=== PATIENT | male | born 2000 | race African-American/Black ===

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

== ENCOUNTER 2021-10-03 13:56 | Emergency (ER) | payer OTHER ==
[2021-10-03] MEDS ORDERED: LIDOCAINE 1% MPF 30 ML VIAL ONE (15:03)
[2021-10-03] MEDS ORDERED: TETANUS & DIPHTHERIA TOX,ADULT 0.5 ML VIAL ONE (15:03)
--- NOTE | 2021-10-03 17:10 | EDPHYS ---
Physician Documentation [facility] Name: Daisy Gunter Age: 20 yrs Sex: Male : 2000 Arrival Date: 10/03/2021 Time: 13:58 Bed Treatment Private MD: ED Physician Davin Motta HPI: 10/03 15:00 This 20 yrs old Black Male presents to ER via Ambulatory with complaints of Finger cp Injury - Finger lac. 15:00 The patient or guardian reports a laceration. cp 15:00 The complaints affect the right small finger. cp 15:00 Context: The problem was sustained at work, resulted from broken glass. cp 15:00 Onset: The symptoms/episode began/occurred today. Associated signs and symptoms: cp Pertinent negatives: cyanosis distally, decreased sensation distally. Historical: - Allergies: 14:12 No Known Allergies; ld1 - Home Meds: 14:12 None [Active]; ld1 - PMHx: 14:12 None; ld1 - PSHx: 14:12 None; ld1 - Immunization history:: Adult Immunizations up to date, Client reports having NOT received the Covid vaccine. - Social history:: Smoking status: Reported history of juuling and/or vaping. Patient uses alcohol, occasionally. ROS: 15:05 Constitutional: Negative for body aches, chills, fever. cp 15:05 Cardiovascular: Negative for chest pain, palpitations. cp 15:05 Respiratory: Negative for cough, shortness of breath, wheezing. 15:05 Abdomen/GI: Negative for abdominal pain, nausea, vomiting, and diarrhea. 15:05 Skin: Positive for laceration(s), of the right fifth finger. 15:05 Neuro: Negative for numbness, tingling. 15:05 All other systems are negative. Exam: 15:10 Constitutional: The patient appears in no acute distress, alert, awake, well developed, cp well nourished. 15:10 Head/Face: Normocephalic, atraumatic. cp 15:10 Cardiovascular: Rate: normal. 15:10 Respiratory: the patient does not display signs of respiratory distress, Respirations: normal. 15:10 Musculoskeletal/extremity: exam of right small finger shows no tendon injury, full ROM. 15:10 Skin: injury, laceration(s), the wound is approximately 3.5 cm(s), of the ulna side middle and proximal phalanx right small finger, that can be described as clean, no foreign body, linear, without bleeding. Vital Signs: 14:11 BP 157 / 71; Pulse 92; Resp 18; Temp 98.6(O); Pulse Ox 98% on R/A; Weight 71.67 kg; ld1 Height 6 ft. 1 in. (185.42 cm); Pain 0/10; 17:40 BP 107 / 64; Pulse 54; Resp 18; Pulse Ox 99% on R/A; ww 14:11 Body Mass Index 20.85 (71.67 kg, 185.42 cm) ld1 Laceration: 17:05 Wound Repair of 3.5cm ( 1.4in ) subcutaneous laceration to radial side right fifth cp finger. Linear shaped.. Distal neuro/vascular/tendon intact. Anesthesia: Wound infiltrated with 4 mls of 1% lidocaine. Wound prep: Moderate cleansing by me, Wound irrigation by me. Skin closed with 6 4-0 Prolene using interrupted sutures and sterile technique. Dressed with Bacitracin, 4x4's. Patient tolerated well. MDM: 14:49 Patient medically screened. cp 17:08 Data reviewed: vital signs, nurses notes. cp 17:08 Differential diagnosis: open fracture, tendon injury, simple laceration. Counseling: I cp had a detailed discussion with the patient and/or guardian regarding: the historical points, exam findings, and any diagnostic results supporting the discharge/admit diagnosis, the need for outpatient follow up, a family practitioner, to return to the emergency department if symptoms worsen or persist or if there are any questions or concerns that arise at home. Response to treatment: the patient's symptoms have markedly improved after treatment, and as a result, I will discharge patient. 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 Exp: ww 01/20/2023. Lot #: [id number]. } Route: IM; Site: left deltoid; 15:35 Drug: Lidocaine (1 %) 10 ml {Note: given via ER ; ANIVAL.} Volume: 20 ml; Route: ww Infiltration; Disposition: 17:15 Chart complete. cp Disposition Summary: 10/03/21 17:08 Discharge Ordered Location: Home cp Problem: new cp Symptoms: have improved cp Condition: Stable cp Diagnosis - Laceration without foreign body of right little finger without damage to nail, cp initial encounter Followup: cp - With: Private Physician - When: 10 - 14 days - Reason: Staple/Suture removal Discharge Instructions: - Discharge Summary Sheet cp - Laceration Care, Adult cp - Sutured Wound Care cp Forms: - Medication Reconciliation Form cp - Thank You Letter cp - Antibiotic Education cp - Prescription Opioid Use cp Addendum: 10/07/2021 07:07 Co-signature as Attending Physician, Davin Motta MD I agree with the assessment and r n plan of care. Attestation: The patient's history, exam findings, diagnostics, and a summary of any interventions or procedures was reviewed in detail with Elpidio HURLEY. Signatures: Davin Motta MD MD rn Page, Corey, PA PA cp Argelia Gurrola RN RN ld1 Bhargavi Weston RN RN ww Corrections: (The following items were deleted from the chart) 10/03 17:09 17:05 Wound Repair of 3.5cm ( 1.4in ) subcutaneous laceration to radial side right cp fourth finger. Linear shaped.. Distal neuro/vascular/tendon intact. Anesthesia: Wound infiltrated with 4 mls of 1% lidocaine. Wound prep: Moderate cleansing by me, Wound irrigation by me. Skin closed with 6 4-0 Prolene using interrupted sutures and sterile technique. Dressed with Bacitracin, 4x4's. Patient tolerated well. cp 10/04 17:26 10/03 15:10 Skin: injury, laceration(s), the wound is approximately 4 cm(s), of the cp ulna side middle and proximal phalanx right small finger, that can be described as clean, no foreign body, linear, without bleeding, cp
--- NOTE | 2021-10-03 17:10 | ER ---
Nurse's Notes [facility] Name: Daisy Gunter Age: 20 yrs Sex: Male : 2000 Arrival Date: 10/03/2021 Time: 13:58 Bed Treatment Private MD: Diagnosis: Laceration without foreign body of right little finger without damage to nail, initial encounter Presentation: 10/03 14:11 Chief complaint: Patient states: Finger laceration to right pinky - Rack of cups ld1 slipped out of hand - broken glass cut finger. Coronavirus screen: At this time, the client does not indicate any symptoms associated with coronavirus-19. Ebola Screen: No symptoms or risks identified at this time. Initial Sepsis Screen: Does the patient meet any 2 criteria? No. Patient's initial sepsis screen is negative. Does the patient have a suspected source of infection? No. Patient's initial sepsis screen is negative. Risk Assessment: Do you want to hurt yourself or someone else? Patient reports no desire to harm self or others. Onset of symptoms was October 03, 2021. 14:11 Method Of Arrival: Ambulatory ld1 14:11 Acuity: DERIAN 4 ld1 Triage Assessment: 14:12 General: Appears in no apparent distress. comfortable, Behavior is calm, cooperative, ld1 appropriate for age. Pain: Denies pain. Neuro: Level of Consciousness is awake, alert, obeys commands, Oriented to person, place, time, situation. Respiratory: Airway is patent Respiratory effort is even, unlabored. Musculoskeletal: No signs and/or symptoms reported regarding the musculoskeletal system. Injury Description: Laceration sustained to dorsal aspect of distal phalanx of right little finger, dorsal aspect of middle phalanx of right little finger and dorsal aspect of proximal phalanx of right little finger. Historical: - Allergies: 14:12 No Known Allergies; ld1 - Home Meds: 14:12 None [Active]; ld1 - PMHx: 14:12 None; ld1 - PSHx: 14:12 None; ld1 - Immunization history:: Adult Immunizations up to date, Client reports having NOT received the Covid vaccine. - Social history:: Smoking status: Reported history of juuling and/or vaping. Patient uses alcohol, occasionally. Screenin:41 Abuse screen: Denies threats or abuse. Denies injuries from another. Nutritional ww screening: No deficits noted. Tuberculosis screening: No symptoms or risk factors identified. Fall Risk None identified. Assessment: 14:30 General: Appears in no apparent distress. comfortable, Behavior is calm, cooperative. ww Pain: Complains of pain in dorsal aspect of middle phalanx of right little finger, dorsal aspect of proximal phalanx of right little finger, palmar aspect of middle phalanx of right little finger and palmar aspect of proximal phalanx of right little finger. Neuro: Level of Consciousness is awake, alert, obeys commands, Oriented to person, place, time, situation, Speech is normal. Cardiovascular: Capillary refill < 3 seconds Patient's skin is warm and dry. Respiratory: Airway is patent Respiratory effort is even, unlabored, Respiratory pattern is regular, symmetrical. GI: No deficits noted. : No deficits noted. Derm: Skin is healthy with good turgor. Injury Description: Laceration sustained to dorsal aspect of middle phalanx of right little finger, dorsal aspect of proximal phalanx of right little finger, palmar aspect of middle phalanx of right little finger and palmar aspect of proximal phalanx of right little finger. 15:15 Reassessment: Patient appears in no apparent distress at this time. No changes from ww previously documented assessment. Patient and/or family updated on plan of care and expected duration. Pain level reassessed. Patient is alert, oriented x 3, equal unlabored respirations, skin warm/dry/pink. 16:26 Reassessment: Patient appears in no apparent distress at this time. No changes from ww previously documented assessment. Patient and/or family updated on plan of care and expected duration. Pain level reassessed. Patient is alert, oriented x 3, equal unlabored respirations, skin warm/dry/pink. Vital Signs: 14:11 BP 157 / 71; Pulse 92; Resp 18; Temp 98.6(O); Pulse Ox 98% on R/A; Weight 71.67 kg; ld1 Height 6 ft. 1 in. (185.42 cm); Pain 0/10; 17:40 BP 107 / 64; Pulse 54; Resp 18; Pulse Ox 99% on R/A; ww 14:11 Body Mass Index 20.85 (71.67 kg, 185.42 cm) ld1 ED Course: 13:58 Patient arrived in ED. ds1 14:11 Arm band placed on right wrist. ld1 14:12 Triage completed. ld1 14:45 [facility] Starkey [facility]. cp 14:46 Davin Motta MD is Attending Physician. cp 14:51 Bhargavi Weston, RN is Primary Nurse. ww 17:41 Patient has correct armband on for positive identification. Bed in low position. Call ww light in reach. Side rails up X 1. 17:41 No provider procedures requiring assistance completed. Patient did not have IV access ww during this emergency room visit. 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 Exp: ww 01/20/2023. Lot #: [id number]. } Route: IM; Site: left deltoid; 15:35 Drug: Lidocaine (1 %) 10 ml {Note: given via ER ; ANIVAL.} Volume: 20 ml; Route: ww Infiltration; Outcome: 17:08 Discharge ordered by MD. cp 17:40 Discharged to home ambulatory. ww 17:40 Condition: stable 17:40 Discharge instructions given to patient, Instructed on discharge instructions, follow up and referral plans. medication usage, safety practices, wound care, Demonstrated understanding of instructions, follow-up care, medications. 17:41 Patient left the ED. ww Signatures: Katharine Leos ds1 Elpidio Starkey PA PA cp Argelia Gurrola, RN RN ld1 Bhargavi Weston, RN RN ww Corrections: (The following items were deleted from the chart) 14:13 14:11 Pulse 92bpm; Resp 18bpm; Pulse Ox 98% RA; Temp 98.6F Oral; 71.67 kg; Height 6 ft. ld1 1 in.; BMI: 20.8; Pain 0/10; ld1
[2021-10-03 18:25] VITALS: TEMP 98.6
[2021-10-03 18:28] VITALS: BP 107/64; O2SAT 99
== END 2021-10-03 17:41 | disposition home or self-care (01) ==
LOC: ER 13:56
PROC: 0JQJ0ZZ Repair Right Hand Subcutaneous Tissue and Fascia, Open Approach (ICD-10-PCS; principal; 2021-10-03)
DX: S61.216A Laceration without foreign body of right little finger without damage to nail, initial encounter (principal); W25.XXXA Contact with sharp glass, initial encounter; Y92.89 Other specified places as the place of occurrence of the external cause; Y99.8 Other external cause status; Z23 Encounter for immunization
CPT/HCPCS: 90471; 90714; 99283

== ENCOUNTER 2021-10-20 17:26 | Emergency (ER) | payer OTHER ==
--- NOTE | 2021-10-20 17:54 | EDPHYS ---
Physician Documentation [facility] Name: Daisy Gunter Age: 20 yrs Sex: Male : 2000 Arrival Date: 10/20/2021 Time: 17:28 Bed 12 Private MD: ED Physician Davin Motta HPI: 10/20 17:51 This 20 yrs old Black Male presents to ER via Ambulatory with complaints of Suture kb Removal. 17:51 The patient has sutures on the dorsal aspect of proximal phalanx of right little kb finger. Previous treatment: The patient was initially treated on October 03, 2021. Sutures/myles progress: The patient has no c/o's. The wound is well-healing with no redness, swelling, discharge, or dehiscence reported. The patient has not experienced similar symptoms in the past. The patient has been recently seen by a physician:. Historical: - Allergies: 17:34 No Known Allergies; ld1 - Home Meds: 17:34 None [Active]; ld1 - PMHx: 17:34 None; ld1 - PSHx: 17:34 None; ld1 - Immunization history:: Adult Immunizations up to date, Client reports having NOT received the Covid vaccine. - Social history:: Smoking status: Reported history of juuling and/or vaping. Patient/guardian denies using alcohol. ROS: 17:52 Constitutional: Negative for fever, chills, and weight loss. kb 17:52 Skin: Positive for sutures in place. 17:52 All other systems are negative. Exam: 17:52 Constitutional: This is a well developed, well nourished patient who is awake, alert, kb and in no acute distress. Head/Face: Normocephalic, atraumatic. ENT: Moist Mucous membranes Respiratory: Respirations even and unlabored. No increased work of breathing. Talking in full sentences MS/ Extremity: Pulses equal, no cyanosis. Neurovascular intact. Full, normal range of motion. Neuro: Awake and alert, GCS 15, oriented to person, place, time, and situation. Moves all extremities. Normal gait. Psych: Awake, alert, with orientation to person, place and time. Behavior, mood, and affect are within normal limits. 17:52 Skin: Wound recheck: Suture laceration closure: the wound is healing well, the edges are well approximated, no evidence of dehiscence, no drainage, no erythema, no swelling. Vital Signs: 17:33 BP 131 / 78; Pulse 55; Resp 18; Temp 98.7(TE); Pulse Ox 97% on R/A; Weight 71.67 kg; ld1 Height 6 ft. 2 in. (187.96 cm); Pain 0/10; 17:33 Body Mass Index 20.29 (71.67 kg, 187.96 cm) ld1 Procedures: 17:52 Suture/Staple removal: Removed 6 sutures, from dorsal aspect of proximal phalanx of kb right little finger, site appears well healed, Patient tolerated well. MDM: 17:45 Patient medically screened. kb 17:52 Data reviewed: vital signs, nurses notes. Data interpreted: Pulse oximetry: on room air kb is 97 %. Interpretation: normal. Counseling: I had a detailed discussion with the patient and/or guardian regarding: the historical points, exam findings, and any diagnostic results supporting the discharge/admit diagnosis, the need for outpatient follow up, a family practitioner, to return to the emergency department if symptoms worsen or persist or if there are any questions or concerns that arise at home. Administered Medications: No medications were administered Disposition: 18:47 Co-signature as Attending Physician, Davin Motta MD I agree with the assessment and rn plan of care. Attestation: The patient's history, exam findings, diagnostics, and a summary of any interventions or procedures was reviewed in detail with Diana SAMUELS. Disposition Summary: 10/20/21 17:53 Discharge Ordered Location: Home Condition: Stable kb Diagnosis - Encounter for removal of sutures kb Followup: kb - With: Emergency Department - When: As needed - Reason: Worsening of condition Followup: kb - With: Private Physician - When: 2 - 3 days - Reason: Recheck today's complaints, Continuance of care, Re-evaluation by your physician Discharge Instructions: - Discharge Summary Sheet kb - Suture Removal, Care After kb Forms: - Medication Reconciliation Form kb - Thank You Letter kb - Antibiotic Education kb - Work release form kb - Prescription Opioid Use kb Signatures: Diana Small FNP-C FNP-Davin Cohen MD MD rn Dibbern, Lauren, RN RN ld1
--- NOTE | 2021-10-20 17:54 | ER ---
Nurse's Notes [facility] Name: Daisy Gunter Age: 20 yrs Sex: Male : 2000 Arrival Date: 10/20/2021 Time: 17:28 Bed 12 Private MD: Diagnosis: Encounter for removal of sutures Presentation: 10/20 17:33 Chief complaint: Patient states: Suture removal in right pinky finger. Coronavirus ld1 screen: At this time, the client does not indicate any symptoms associated with coronavirus-19. Ebola Screen: No symptoms or risks identified at this time. Initial Sepsis Screen: Does the patient meet any 2 criteria? No. Patient's initial sepsis screen is negative. Does the patient have a suspected source of infection? No. Patient's initial sepsis screen is negative. Risk Assessment: Do you want to hurt yourself or someone else? Patient reports no desire to harm self or others. Onset of symptoms was October 20, 2021. 17:33 Method Of Arrival: Ambulatory ld1 17:33 Acuity: DERIAN 4 ld1 Triage Assessment: 17:34 General: Appears in no apparent distress. comfortable, Behavior is calm, cooperative, ld1 appropriate for age. Pain: Denies pain. Neuro: Level of Consciousness is awake, alert, obeys commands, Oriented to person, place, time, situation. Respiratory: Airway is patent Respiratory effort is even, unlabored. Derm:. 17:36 General: Appears in no apparent distress. comfortable, Behavior is calm, cooperative. lr4 Pain: Denies pain. Neuro: No deficits noted. Cardiovascular: No deficits noted. Respiratory: No deficits noted. Injury Description: Sutures noted to R hand posterior 5th digit. healing well. Historical: - Allergies: 17:34 No Known Allergies; ld1 - Home Meds: 17:34 None [Active]; ld1 - PMHx: 17:34 None; ld1 - PSHx: 17:34 None; ld1 - Immunization history:: Adult Immunizations up to date, Client reports having NOT received the Covid vaccine. - Social history:: Smoking status: Reported history of juuling and/or vaping. Patient/guardian denies using alcohol. Screenin:38 Abuse screen: Denies threats or abuse. lr4 17:38 Fall Risk None identified. lr4 17:38 Nutritional screening: No deficits noted. Tuberculosis screening: No symptoms or risk lr4 factors identified. Vital Signs: 17:33 BP 131 / 78; Pulse 55; Resp 18; Temp 98.7(TE); Pulse Ox 97% on R/A; Weight 71.67 kg; ld1 Height 6 ft. 2 in. (187.96 cm); Pain 0/10; 17:33 Body Mass Index 20.29 (71.67 kg, 187.96 cm) ld1 ED Course: 17:28 Patient arrived in ED. as 17:34 Triage completed. ld1 17:34 Arm band placed on. Arm band placed on right wrist. ld1 17:38 Patient has correct armband on for positive identification. Call light in reach. Adult lr4 w/ patient. Door closed. 17:38 No provider procedures requiring assistance completed. lr4 17:38 Patient did not have IV access during this emergency room visit. lr4 17:45 Diana Small F[facility]-C [facility] kb 17:45 Davin Motta MD is Attending Physician. kb Administered Medications: No medications were administered Outcome: 17:38 Condition: good lr4 17:39 Discharged to home lr4 17:39 Discharge instructions given to patient. lr4 17:53 Discharge ordered by . kb 18:06 Patient left the ED. lr4 Signatures: Diana Small FNP-C FNP-Ckb Martinez, Amelia as Dibbern, Lauren, RN RN ld1 Danielle Russell RN RN lr4
[2021-10-20 18:12] VITALS: BP 131/78; TEMP 98.7; O2SAT 97
== END 2021-10-20 18:06 | disposition home or self-care (01) ==
LOC: ER 17:26
DX: Z48.02 Encounter for removal of sutures (principal)
CPT/HCPCS: 99281

== ENCOUNTER 2022-03-08 10:48 | Emergency (ER) | payer OTHER ==
[2022-03-08 12:12] LABS: Absolute Lymphocytes (CBC) 0.9 K/uL (0.7-4.9); Hematocrit 41.2 % (39.6-49.0); Lymphocytes % 7.3 % (15.3-44.8); MCV 93.1 fL (80-100); MPV 10.5 fL (7.6-11.3); RBC Red Blood Cell Count 4.43 M/uL (4.33-5.43)
[2022-03-08 12:29] LABS: Albumin 4.4 g/dL (3.4-5.0); Bilirubin Total 1.6 mg/dL (0.2-1.0); Potassium 3.9 mmol/L (3.5-5.1); Protein, Total 7.7 g/dL (6.4-8.2)
--- NOTE | 2022-03-08 12:52 | RAD REPORT ---
EXAM DESCRIPTION: CT - Stone Protocol - 03/08/2022 12:16 pm CLINICAL HISTORY: vomiting, groin pain COMPARISON: No comparisons TECHNIQUE: Axial 3 mm thick images were obtained without oral or IV contrast. The [id number] span s the entirety of the system including uppermost abdomen and lung bases. All CT scans are performed using dose optimization technique as appropriate and may include automated exposure control or mA/KV adjustment according to patient size. FINDINGS: No hydronephrosis is present and no obstructing ureteral calculi. No suspicious renal mass es. Isodense masses and pyelonephritis are not excluded on a stone protocol CT scan. No significant a drenal finding. No urinary bladder suspicious finding. Imaged portions of the liver, spleen and pancreas show no suspicious findings on non-contrast imaging . No gallbladder or biliary tree abnormality identified. No suspicious bowel findings. Appendix is not clearly defined. There are no direct or indirect findin gs for appendicitis. No hernia, mass or bulky lymphadenopathy noted. No free air, free fluid or inflammatory stranding. No significant bony abnormality. Patient has a paucity of intraabdominal fat. Prominent paraspinal musculature present. These 2 factor s contribute to decreased sensitivity of the examination. IMPRESSION: Negative CT stone protocol study. Isodense masses and pyelonephritis are not excluded on stone protocol technique. No other significant or suspicious findings.
--- NOTE | 2022-03-08 13:12 | RAD REPORT ---
EXAM DESCRIPTION: US - Scrotum Testicles - 03/08/2022 1:00 pm CLINICAL HISTORY: Testicular pain COMPARISON: None FINDINGS: Right testicle measures 4 x 1.9 x 3.3 centimeters. Echotexture is homogeneous. Normal bloo d flow Left testicle measures 3.7 x 2.1 x 2.2 centimeters. Echotexture is homogeneous. Normal blood flow The epididymides are normal in size and echotexture. Normal blood flow is seen. Right varicocele Small lymph nodes probably reactive IMPRESSION: Right varicocele
[2022-03-08 13:54] LABS: Urine Blood Negative (Negative); Urine Glucose Negative (Negative); Urine Protein Negative (Negative); Urine Specific Gravity 1.025 (1.005-1.030); Urine pH 5.5 (5.0-7.0)
[2022-03-08] MEDS ORDERED: CEFTRIAXONE 1000 MG/VIAL ONE (14:21)
[2022-03-08] MEDS ORDERED: AZITHROMYCIN 250 MG TAB ONE (14:21)
[2022-03-08] MEDS ORDERED: NA CHLORIDE 0.9% 50 ML ONE (14:22)
--- NOTE | 2022-03-08 15:22 | ER ---
Nurse's Notes [facility] Name: Daisy Gunter Age: 21 yrs Sex: Male : 2000 Arrival Date: 03/08/2022 Time: 10:51 Bed 12 Private MD: Diagnosis: Vomiting;Scrotal varices Presentation: 03/08 11:33 Chief complaint: Patient states: Pain that began to abd than is now radiating to ss testicles and groin area. + N/V. Coronavirus screen: Client denies travel out of the [place] in the last 14 days. Ebola Screen: Patient denies exposure to infectious person. Patient denies travel to an Ebola-affected area in the 21 days before illness onset. Initial Sepsis Screen: Does the patient meet any 2 criteria? No. Patient's initial sepsis screen is negative. Does the patient have a suspected source of infection? No. Patient's initial sepsis screen is negative. Risk Assessment: Do you want to hurt yourself or someone else? Patient reports no desire to harm self or others. Onset of symptoms was March 07, 2022. 11:33 Method Of Arrival: Ambulatory ss 11:33 Acuity: DERIAN 3 ss Triage Assessment: 13:38 General: Appears in no apparent distress. Behavior is calm, cooperative, appropriate ap3 for age. Pain: Complains of pain in pelvis. Neuro: Level of Consciousness is awake, alert, obeys commands, Oriented to person, place, time, situation, Gait is steady, Speech is normal. Cardiovascular: Patient's skin is warm and dry. Respiratory: Airway is patent Respiratory effort is even, unlabored, Respiratory pattern is regular, symmetrical. Historical: - Allergies: 11:36 No Known Allergies; ss - Home Meds: 11:36 None [Active]; ss - PMHx: 11:36 None; ss - PSHx: 11:36 L wrist; ss - Immunization history:: Client reports receiving the 2nd dose of the Covid vaccine. - Social history:: Smoking status: Reported history of juuling and/or vaping. Screenin:37 Abuse screen: Denies threats or abuse. Nutritional screening: No deficits noted. ap3 Tuberculosis screening: No symptoms or risk factors identified. Fall Risk None identified. Assessment: 13:36 Reassessment: patient provided with urine specimen container and education on proper ap3 urine collection. patient verbalized understanding on proper collection technique. Vital Signs: 11:33 BP 115 / 61; Pulse 64; Resp 16; Temp 98.6(TE); Pulse Ox 100% on R/A; Pain 9/10; ss ED Course: 10:51 Patient arrived in ED. rg4 10:55 Tello Resendiz PA is PHCP. jmm 10:55 Nader Bird DO is Attending Physician. jmm 11:36 Triage completed. ss 11:36 Arm band placed on right wrist. ss 12:07 Inserted saline lock: 20 gauge in right antecubital area, using aseptic technique. zm Blood collected. 12:07 CBC with Diff Sent. zm 12:07 CMP Sent. zm 12:07 Lipase Sent. zm 12:18 CT Stone Protocol In Process Unspecified. EDMS 13:01 US Scrotum Testicles In Process Unspecified. EDMS 13:30 Sharmila Donaldson, RN is Primary Nurse. ss 13:38 Patient has correct armband on for positive identification. Bed in low position. Call ap3 light in reach. Side rails up X 1. Adult w/ patient. Pulse ox on. NIBP on. Door closed. Noise minimized. Warm blanket given. 15:20 Doni Whitt MD is Referral Physician. m 15:41 No provider procedures requiring assistance completed. Patient did not have IV access ap3 during this emergency room visit. Administered Medications: 14:19 Drug: Rocephin (cefTRIAXone) 1 grams Route: IV; Rate: calculated rate; Site: right ap3 antecubital; 15:43 Follow up: IV Status: Completed infusion; IV Intake: 100ml ap3 14:19 Drug: AZITHromycin 1 grams Route: PO; ap3 15:50 Follow up: Response: No adverse reaction ss Medication: 15:41 VIS not applicable for this client. ap3 Intake: 15:43 IV: 100ml; Total: 100ml. ap3 Outcome: 15:22 Discharge ordered by . jmm 15:41 Discharged to home ambulatory. ap3 15:41 Condition: good 15:41 Discharge instructions given to patient, Instructed on discharge instructions, follow up and referral plans. medication usage, Demonstrated understanding of instructions, follow-up care, medications, Prescriptions given X 1. 15:42 Patient left the ED. ap3 Signatures: Dispatcher [employer] Tello Cruz PA PA jmm Smirch, Shelby, CLAYTON RN ss Juli Ramon4 Linda Velasco RN RN ap3 Oneyda Bose
--- NOTE | 2022-03-08 15:22 | EDPHYS ---
Physician Documentation [facility] Name: Daisy Gunter Age: 21 yrs Sex: Male : 2000 Arrival Date: 03/08/2022 Time: 10:51 Bed 12 Private MD: ED Physician Nader Bird HPI: 03/08 11:36 This 21 yrs old Black Male presents to ER via Ambulatory with complaints of Groin Pain. jmm 11:36 The patient presents with scrotal pain. Onset: The symptoms/episode began/occurred jmm gradually. Modifying factors: The symptoms are alleviated by nothing, the symptoms are aggravated by nothing. 13:59 Associated signs and symptoms: Pertinent positives: abdominal pain. The patient has not jmm experienced similar symptoms in the past. Historical: - Allergies: 11:36 No Known Allergies; ss - Home Meds: 11:36 None [Active]; ss - PMHx: 11:36 None; ss - PSHx: 11:36 L wrist; ss - Immunization history:: Client reports receiving the 2nd dose of the Covid vaccine. - Social history:: Smoking status: Reported history of juuling and/or vaping. ROS: 13:59 Constitutional: Negative for fever, chills, and weight loss, Cardiovascular: Negative jmm for chest pain, palpitations, and edema, Respiratory: Negative for shortness of breath, cough, wheezing, and pleuritic chest pain. 13:59 Abdomen/GI: Positive for abdominal pain. 13:59 All other systems are negative. Exam: 13:59 Constitutional: This is a well developed, well nourished patient who is awake, alert, jmm and in no acute distress. Head/Face: atraumatic. Eyes: EOMI, no conjunctival erythema appreciated ENT: Moist Mucus Membranes Neck: Trachea midline, Supple Chest/axilla: Normal chest wall appearance and motion. Cardiovascular: Regular rate and rhythm. No edema appreciated Respiratory: Normal respirations, no respiratory distress appreciated Abdomen/GI: Non distended Back: Normal ROM Skin: General appearance color normal MS/ Extremity: Moves all extremities, no obvious deformities appreciated, no edema noted to the lower extremities Neuro: Awake and alert Psych: Behavior is normal, Mood is normal, Patient is cooperative and pleasant Vital Signs: 11:33 BP 115 / 61; Pulse 64; Resp 16; Temp 98.6(TE); Pulse Ox 100% on R/A; Pain 9/10; ss MDM: 11:36 Patient medically screened. [facility] 15:19 Data reviewed: vital signs, nurses notes. [facility] 15:20 Counseling: I had a detailed discussion with the patient and/or guardian regarding: the [facility] historical points, exam findings, and any diagnostic results supporting the discharge/admit diagnosis, lab results, radiology results, the need for outpatient follow up, to return to the emergency department if symptoms worsen or persist or if there are any questions or concerns that arise at home. 03/08 11:37 Order name: CBC with Diff; Complete Time: 12:26 [facility] 03/08 11:37 Order name: CMP; Complete Time: 12:29 [facility] 03/08 11:37 Order name: Lipase; Complete Time: 12:29 [facility] 03/08 13:55 Order name: Urine Dipstick-Ancillary; Complete Time: 13:56 EDMS 03/08 14:00 Order name: Urine Culture 03/08 11:37 Order name: IV Saline Lock; Complete Time: 12:07 [facility] 03/08 11:37 Order name: Labs collected and sent; Complete Time: 12:07 [facility] 03/08 11:37 Order name: Urine Dipstick-Ancillary (obtain specimen); Complete Time: 14:00 [facility] 03/08 11:53 Order name: CT Stone Protocol; Complete Time: 12:54 [facility] 03/08 12:27 Order name: US Scrotum Testicles; Complete Time: 13:18 [facility] 03/08 14:04 Order name: GC (Roverto/Chl) Probe URINE EDMS Administered Medications: 14:19 Drug: Rocephin (cefTRIAXone) 1 grams Route: IV; Rate: calculated rate; Site: right ap3 antecubital; 15:43 Follow up: IV Status: Completed infusion; IV Intake: 100ml ap3 14:19 Drug: AZITHromycin 1 grams Route: PO; ap3 15:50 Follow up: Response: No adverse reaction ss Disposition: 20:00 Co-signature as Attending Physician, Nader MONAE was immediately available on-site ms3 in the Emergency Department for consultation in the care of the patient.. Disposition Summary: 03/08/22 15:22 Discharge Ordered Location: Home [facility] Condition: Stable jmm Diagnosis - Vomiting jmm - Scrotal varices jm Followup: [facility] - With: Doni Whitt MD - When: 2 - 3 days - Reason: Recheck today's complaints, Continuance of care, Re-evaluation by your physician Discharge Instructions: - Discharge Summary Sheet jmm - Varicocele jmm - Vomiting, Adult jmm Forms: - Medication Reconciliation Form jm - Thank You Letter jmm - Antibiotic Education jmm - Prescription Opioid Use [facility] - Work release form ap3 Prescriptions: - ondansetron 4 mg Oral tablet,disintegrating - take 1 tablet by ORAL route every 4-6 hours; 20 tablet; Refills: 0, Product jm Selection Permitted Signatures: Dispatcher [employer] EDMS Tello Resendiz PA PA marilynm Sharmila Donaldson RN RN ss Linda Velasco RN RN ap3 Nader Bird DO DO ms3 Corrections: (The following items were deleted from the chart) 14:16 13:51 GC (Gonorr/Clamydia) Probe+R.LAB.BRZ ordered. EDMS EDMS
[2022-03-08 16:10] VITALS: BP 115/61; TEMP 98.6; O2SAT 100
[2022-03-11 04:47] LABS: C.trachomatis RNA,TMA Detected (Not Detected)
== END 2022-03-08 15:42 | disposition home or self-care (01) ==
LOC: ER 10:48
DX: I86.1 Scrotal varices (principal); R11.10 Vomiting, unspecified
CPT/HCPCS: 36415; 74176; 76377; 76870; 80053; 81003; 83690; 85025; 87086; 87088; 87490; 87590